=== PATIENT | female | born 1995 | race Caucasian/White ===

== ENCOUNTER → 2017-10-12 14:52 | Outpatient (CLI) | payer OTHER, SELFPAY ==
[2017-10-12 17:03] LABS: Thyroid Stimulating Hormone 0.65 uIU/mL (0.47-4.68)
== END ==
PROVIDERS: PCP Internal Medicine; Visit Provider Internal Medicine
DX: E03.9 Hypothyroidism, unspecified (principal)
CPT/HCPCS: 36415; 84443

== ENCOUNTER → 2017-12-17 14:20 | Outpatient (CLI) | payer OTHER, SELFPAY ==
[2017-12-17 17:31] LABS: Thyroid Stimulating Hormone 1.55 uIU/mL (0.47-4.68)
[2017-12-21 22:15] LABS: (tTG) Ab, IgA < 1 U/mL
== END ==
PROVIDERS: PCP Internal Medicine; Visit Provider Internal Medicine Endocrinology, Diabetes & Metabolism
DX: E03.1 Congenital hypothyroidism without goiter (principal)
CPT/HCPCS: 36415; 83516; 84443; 86255

== ENCOUNTER 2018-05-05 15:23 | Emergency (ER) | payer OTHER, SELFPAY ==
[2018-05-05 15:41] VITALS: BP 146/94; PULSE 103; RESP 15; TEMP 36.9; O2SAT 98; BMI 26.4
[2018-05-05 18:04] VITALS: BP 145/87; PULSE 109; RESP 19; O2SAT 100
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
[2018-05-05 19:46] VITALS: BP 127/80; PULSE 78; RESP 14; O2SAT 100
[2018-05-05] MEDS: KETOROLAC 60 MG/2 ML VIAL IM (19:50)
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
== END 2018-05-05 19:56 | disposition home or self-care (01) ==
PROVIDERS: Emergency Provider Emergency Medicine
DX: M54.6 Pain in thoracic spine (principal); V43.52XA Car driver injured in collision with other type car in traffic accident, initial encounter
CPT/HCPCS: 96372; 99282; 99283; J1885